=== PATIENT | male | born 1955 | race Caucasian/White ===

== ENCOUNTER 2019-02-12 18:34 | Inpatient (IN) | payer OTHER, MEDICAID ==
[~2019-02-12] VITALS: Ht 157.5 cm; Wt 93.0 kg
[2019-02-12 18:36] VITALS: BP_SYST 96
[2019-02-12] MEDS ORDERED: DOCU-144 PO (19:00)
[2019-02-12] MEDS ORDERED: OMEP20CA10 PO (19:00)
[2019-02-12] MEDS ORDERED: FERR-69 PO (19:00)
[2019-02-12] MEDS ORDERED: HYT1 PO (19:00)
[2019-02-12] MEDS ORDERED: CALC500T3 PO (19:00)
[2019-02-12] MEDS ORDERED: NEU100 PO (19:00)
[2019-02-12] MEDS ORDERED: ASPI-1155 PO (19:00)
[2019-02-12] MEDS ORDERED: NACL 0.9% 1,000 ML IV ONE (20:00)
[2019-02-12 20:11] LABS: BASOPHILS % (AUTO) 0.7 % (0.0-2.0); EOSINOPHILS # (AUTO) 0.3 K/uL (0.0-0.4); EOSINOPHILS % (AUTO) 4.7 % (0.0-4.0); HEMATOCRIT 27.4 % (36-54); HEMOGLOBIN 8.7 g/dL (14.0-18.0); LYMPHOCYTES # (AUTO) 1.1 K/uL (1.0-5.5); LYMPHOCYTES % (AUTO) 17.2 % (20.5-51.5); MEAN CORPUSCULAR HEMOGLOBIN 29 pg (27-31); MEAN CORPUSCULAR HGB CONC 32 % (32-36); MEAN CORPUSCULAR VOLUME 92 fL (79.0-98.0); MONOCYTES # (AUTO) 0.4 K/uL (0.0-1.0); MONOCYTES % (AUTO) 6.4 % (1.7-9.3); NEUTROPHILS # (AUTO) 4.6 K/uL (1.8-7.7); PLATELET COUNT (AUTO) 153 K/uL (130-430); RED BLOOD CELL COUNT(AUTO) 2.99 MIL/uL (4.2-6.2); RED CELL DISTRIBUTION WIDTH 18.3 % (9.0-15.0); WHITE BLOOD COUNT (AUTO) 6.4 K/uL (4.8-10.8)
[2019-02-12 20:30] LABS: PROTHROMBIN TIME 10.1 SECS (9.5-12.5)
[2019-02-12 20:32] LABS: ALBUMIN 1.8 g/dL (3.4-4.8); CALCIUM 8.9 mg/dL (8.4-11.0); CREATININE 6.07 mg/dL (0.55-1.30); TOTAL BILIRUBIN 0.2 mg/dL (0.0-1.0)
[2019-02-12 20:48] LABS: BILIRUBIN,URINE NEGATIVE (NEGATIVE); BLOOD, URINE 2+ (NEGATIVE); CLARITY/URINE HAZY (CLEAR); COLOR,URINE YELLOW (YELLOW); GLUCOSE,URINE NEGATIVE (NEGATIVE); KETONES,URINE NEGATIVE (NEGATIVE); LEUKOCYTE ESTERASE ,URINE 3+ (NEGATIVE); NITRITE, URINE POSITIVE (NEGATIVE); PH,URINE 7.5 (5.0-8.0); PROTEIN URINE 1+ (NEGATIVE)
[2019-02-12 20:49] LABS: UROBILINOGEN,URINE 0.2 (0.2-1.0)
[2019-02-12 20:50] LABS: BACTERIA,URINE MODERATE /HPF (None Seen); RBC,URINE 20-50 /HPF (0-3); WBC,URINE 50-80 /HPF (0-3)
[2019-02-12] MEDS ORDERED: cefTRIAXone 1 GM IVPB PREMIX 50 ML IV ONE (21:00)
[2019-02-12] MEDS ORDERED: NACL 0.9% 1,000 ML IV SCH (22:00)
[2019-02-12] MEDS ORDERED: LORazepam 2 MG/ML VIAL IVP PRN (23:45)
[2019-02-12] MEDS ORDERED: ACETAMINOPHEN 325 MG TABLET PO PRN (23:45)
[2019-02-12] MEDS ORDERED: HYDROcodone/ACETAMIN 10-325 MG TAB PO PRN (23:45)
[2019-02-12] MEDS ORDERED: LR 1,000 ML IV SCH (23:45)
[2019-02-12] MEDS ORDERED: ONDANSETRON HCL 4 MG/2 ML VIAL IVP PRN (23:45)
[2019-02-12] MEDS ORDERED: HYDROcodone/ACETAMIN 5-325 MG TAB (NORCO/ VICODIN) PO PRN (23:45)
[2019-02-12 23:50] VITALS: BP_SYST 102
[2019-02-13] MEDS: D5/0.45 NS 1,000 ML IV SCH ×3 (01:38→21:09)
[2019-02-13 02:36] VITALS: BP_SYST 150
[2019-02-13 05:26] LABS: BASOPHILS # (AUTO) 0.1 K/uL (0.0-0.2); BASOPHILS % (AUTO) 0.8 % (0.0-2.0); EOSINOPHILS # (AUTO) 0.3 K/uL (0.0-0.4); EOSINOPHILS % (AUTO) 4.7 % (0.0-4.0); HEMATOCRIT 25.8 % (36-54); LYMPHOCYTES # (AUTO) 1.8 K/uL (1.0-5.5); LYMPHOCYTES % (AUTO) 27.7 % (20.5-51.5); MEAN CORPUSCULAR HEMOGLOBIN 29 pg (27-31); MEAN CORPUSCULAR HGB CONC 31 % (32-36); MEAN CORPUSCULAR VOLUME 93 fL (79.0-98.0); MONOCYTES # (AUTO) 0.5 K/uL (0.0-1.0); MONOCYTES % (AUTO) 7.3 % (1.7-9.3); NEUTROPHILS % (AUTO) 59.5 % (40.0-70.0); PLATELET COUNT (AUTO) 150 K/uL (130-430); RED BLOOD CELL COUNT(AUTO) 2.78 MIL/uL (4.2-6.2); RED CELL DISTRIBUTION WIDTH 18.7 % (9.0-15.0); WHITE BLOOD COUNT (AUTO) 6.7 K/uL (4.8-10.8)
[2019-02-13] MEDS: NORMAL SALINE 5 ML DISP.SYRIN IVF SCH ×3 (05:32→21:11)
[2019-02-13 05:41] LABS: C-REACTIVE PROTEIN QUANT 9.5 mg/dL (0-0.5); CALCIUM 8.4 mg/dL (8.4-11.0); CREATININE 5.69 mg/dL (0.55-1.30); PHOSPHORUS 8.3 mg/dL (2.7-4.5)
[2019-02-13] MEDS ORDERED: NORMAL SALINE 5 ML DISP.SYRIN IVF SCH (06:00)
[2019-02-13 07:52] LABS: ERYTHROCYTE SEDIMENTATION RATE 79 MM/HR (0-15)
[2019-02-13 09:00] VITALS: BP_SYST 82
[2019-02-13] MEDS ORDERED: CALCIUM CARBONATE 500 MG PO SCH (09:00)
[2019-02-13] MEDS ORDERED: NON-FORMULARY MEDICATION (Ferrous Sulfate 325 MG) PO SCH (09:00)
[2019-02-13] MEDS: TERAZOSIN HCL 1 MG CAPSULE (HYTRIN) PO SCH ×2 (09:00→21:00)
[2019-02-13] MEDS ORDERED: NACL 0.9% 1,000 ML IV ONE (09:15)
[2019-02-13] MEDS ORDERED: NACL 0.9% 1,000 ML IV SCH (10:00)
[2019-02-13] MEDS: GABAPENTIN 100 MG CAPSULE PO SCH (10:01)
[2019-02-13] MEDS: FERROUS SULFATE 325 MG TABLET.DR PO SCH (10:01)
[2019-02-13] MEDS: DOCUSATE SODIUM 100 MG CAPSULE PO SCH ×2 (10:01→21:10)
[2019-02-13] MEDS: OMEPRAZOLE 20 MG CAPSULE.DR (PriLOSEC) PO SCH (10:01)
[2019-02-13] MEDS: CALCIUM CARBONATE 500 MG/ TAB.CHEW PO SCH ×2 (10:01→21:10)
[2019-02-13 10:02] VITALS: BP_SYST 98
[2019-02-13] MEDS: ASPIRIN 81 MG TAB.CHEW PO SCH (10:02)
[2019-02-13 12:37] VITALS: BP_SYST 100
[2019-02-13 16:00] VITALS: BP_SYST 90
[2019-02-13 19:35] VITALS: BP_SYST 90
[2019-02-13] MEDS ORDERED: cefTRIAXone 1 GM IVPB PREMIX 50 ML IV SCH (21:00)
[2019-02-14] VITALS (9 sets, daily range): BP systolic 85–101
[2019-02-14] MEDS ORDERED: PIPERACILLIN/TAZOBACTAM 2.25 GM VIAL IV ONE (03:38)
[2019-02-14] MEDS: PIPERACILLIN/TAZO 2.25G/DEX-IS 50 ML IV SCH ×3 (05:43→21:02)
[2019-02-14] MEDS: NORMAL SALINE 5 ML DISP.SYRIN IVF SCH ×3 (05:44→21:03)
[2019-02-14] MEDS: CALCIUM CARBONATE 500 MG/ TAB.CHEW PO SCH ×2 (08:27→20:58)
[2019-02-14] MEDS: ASPIRIN 81 MG TAB.CHEW PO SCH (08:28)
[2019-02-14] MEDS: FERROUS SULFATE 325 MG TABLET.DR PO SCH (08:28)
[2019-02-14] MEDS: GABAPENTIN 100 MG CAPSULE PO SCH (08:28)
[2019-02-14] MEDS: OMEPRAZOLE 20 MG CAPSULE.DR (PriLOSEC) PO SCH (08:28)
[2019-02-14] MEDS: DOCUSATE SODIUM 100 MG CAPSULE PO SCH ×2 (08:28→20:58)
[2019-02-14] MEDS: TERAZOSIN HCL 1 MG CAPSULE (HYTRIN) PO SCH ×2 (08:29→20:58)
[2019-02-14] MEDS ORDERED: 0.45% NS 500 ML IV ONE (08:45)
[2019-02-14] MEDS ORDERED: NACL 0.9% 1,000 ML IV ONE (09:15)
[2019-02-14] MEDS: D5/0.45 NS 1,000 ML IV SCH ×2 (11:20→20:57)
[2019-02-14 12:03] LABS: BASOPHILS % (AUTO) 0.7 % (0.0-2.0); EOSINOPHILS # (AUTO) 0.2 K/uL (0.0-0.4); HEMATOCRIT 26.2 % (36-54); HEMOGLOBIN 8.1 g/dL (14.0-18.0); LYMPHOCYTES # (AUTO) 0.9 K/uL (1.0-5.5); MEAN CORPUSCULAR HEMOGLOBIN 29 pg (27-31); MEAN CORPUSCULAR HGB CONC 31 % (32-36); MEAN CORPUSCULAR VOLUME 93 fL (79.0-98.0); MONOCYTES # (AUTO) 0.3 K/uL (0.0-1.0); MONOCYTES % (AUTO) 5.6 % (1.7-9.3); NEUTROPHILS # (AUTO) 3.4 K/uL (1.8-7.7); NEUTROPHILS % (AUTO) 70.7 % (40.0-70.0); PLATELET COUNT (AUTO) 160 K/uL (130-430); RED BLOOD CELL COUNT(AUTO) 2.82 MIL/uL (4.2-6.2); RED CELL DISTRIBUTION WIDTH 18.9 % (9.0-15.0); WHITE BLOOD COUNT (AUTO) 4.8 K/uL (4.8-10.8)
[2019-02-14 12:07] LABS: ALBUMIN 1.6 g/dL (3.4-4.8); C-REACTIVE PROTEIN QUANT 7.5 mg/dL (0-0.5); CREATININE 4.96 mg/dL (0.55-1.30); PHOSPHORUS 7.8 mg/dL (2.7-4.5); POTASSIUM 3.9 mmol/L (3.5-5.1); TOTAL BILIRUBIN 0.2 mg/dL (0.0-1.0)
[2019-02-14 13:19] LABS: ERYTHROCYTE SEDIMENTATION RATE 71 MM/HR (0-15)
[2019-02-15] VITALS (7 sets, daily range): BP systolic 82–109
[2019-02-15] MEDS: D5/0.45 NS 1,000 ML IV SCH ×3 (05:22→23:46)
[2019-02-15] MEDS: PIPERACILLIN/TAZO 2.25G/DEX-IS 50 ML IV SCH ×2 (05:23→14:24)
[2019-02-15] MEDS: NORMAL SALINE 5 ML DISP.SYRIN IVF SCH ×3 (05:23→21:35)
[2019-02-15 07:01] LABS: BASOPHILS % (AUTO) 0.6 % (0.0-2.0); EOSINOPHILS # (AUTO) 0.3 K/uL (0.0-0.4); EOSINOPHILS % (AUTO) 4.2 % (0.0-4.0); HEMATOCRIT 24.6 % (36-54); HEMOGLOBIN 7.7 g/dL (14.0-18.0); LYMPHOCYTES # (AUTO) 1.4 K/uL (1.0-5.5); MEAN CORPUSCULAR HEMOGLOBIN 29 pg (27-31); MEAN CORPUSCULAR HGB CONC 31 % (32-36); MEAN CORPUSCULAR VOLUME 92 fL (79.0-98.0); MONOCYTES # (AUTO) 0.7 K/uL (0.0-1.0); MONOCYTES % (AUTO) 12.4 % (1.7-9.3); NEUTROPHILS # (AUTO) 3.5 K/uL (1.8-7.7); NEUTROPHILS % (AUTO) 58.8 % (40.0-70.0); PLATELET COUNT (AUTO) 148 K/uL (130-430); RED BLOOD CELL COUNT(AUTO) 2.66 MIL/uL (4.2-6.2); RED CELL DISTRIBUTION WIDTH 18.5 % (9.0-15.0); WHITE BLOOD COUNT (AUTO) 5.9 K/uL (4.8-10.8)
[2019-02-15 07:07] LABS: C-REACTIVE PROTEIN QUANT 6.4 mg/dL (0-0.5); CREATININE 4.56 mg/dL (0.55-1.30); PHOSPHORUS 6.8 mg/dL (2.7-4.5); POTASSIUM 3.5 mmol/L (3.5-5.1)
[2019-02-15 08:03] LABS: ERYTHROCYTE SEDIMENTATION RATE 67 MM/HR (0-15)
[2019-02-15] MEDS: TERAZOSIN HCL 1 MG CAPSULE (HYTRIN) PO SCH ×2 (09:00→21:00)
[2019-02-15] MEDS: GABAPENTIN 100 MG CAPSULE PO SCH (09:03)
[2019-02-15] MEDS: DOCUSATE SODIUM 100 MG CAPSULE PO SCH ×2 (09:04→21:25)
[2019-02-15] MEDS: ASPIRIN 81 MG TAB.CHEW PO SCH (09:04)
[2019-02-15] MEDS: OMEPRAZOLE 20 MG CAPSULE.DR (PriLOSEC) PO SCH (09:04)
[2019-02-15] MEDS: CALCIUM CARBONATE 500 MG/ TAB.CHEW PO SCH ×2 (09:04→21:26)
[2019-02-15] MEDS: FERROUS SULFATE 325 MG TABLET.DR PO SCH (09:04)
[2019-02-15] MEDS ORDERED: MEROPENEM 500 MG VIAL IV ONE (21:58)
[2019-02-15] MEDS: MEROPENEM 500 MG in NS 50 ML IV SCH (22:08)
[2019-02-16 00:40] VITALS: BP_SYST 90
[2019-02-16] MEDS: NORMAL SALINE 5 ML DISP.SYRIN IVF SCH ×3 (05:21→20:41)
[2019-02-16 07:02] LABS: BASOPHILS % (AUTO) 0.7 % (0.0-2.0); EOSINOPHILS # (AUTO) 0.3 K/uL (0.0-0.4); EOSINOPHILS % (AUTO) 4.7 % (0.0-4.0); HEMATOCRIT 25.2 % (36-54); HEMOGLOBIN 8.2 g/dL (14.0-18.0); LYMPHOCYTES # (AUTO) 1.6 K/uL (1.0-5.5); LYMPHOCYTES % (AUTO) 29.6 % (20.5-51.5); MEAN CORPUSCULAR HEMOGLOBIN 30 pg (27-31); MEAN CORPUSCULAR HGB CONC 33 % (32-36); MEAN CORPUSCULAR VOLUME 91 fL (79.0-98.0); MONOCYTES # (AUTO) 0.6 K/uL (0.0-1.0); MONOCYTES % (AUTO) 10.8 % (1.7-9.3); NEUTROPHILS # (AUTO) 2.9 K/uL (1.8-7.7); NEUTROPHILS % (AUTO) 54.2 % (40.0-70.0); PLATELET COUNT (AUTO) 145 K/uL (130-430); RED BLOOD CELL COUNT(AUTO) 2.75 MIL/uL (4.2-6.2); RED CELL DISTRIBUTION WIDTH 18.5 % (9.0-15.0); WHITE BLOOD COUNT (AUTO) 5.4 K/uL (4.8-10.8)
[2019-02-16 07:12] LABS: C-REACTIVE PROTEIN QUANT 5.8 mg/dL (0-0.5); CREATININE 4.36 mg/dL (0.55-1.30); PHOSPHORUS 7.7 mg/dL (2.7-4.5); POTASSIUM 3.3 mmol/L (3.5-5.1)
[2019-02-16 08:13] LABS: ERYTHROCYTE SEDIMENTATION RATE 62 MM/HR (0-15)
[2019-02-16] MEDS: TERAZOSIN HCL 1 MG CAPSULE (HYTRIN) PO SCH ×2 (08:26→20:41)
[2019-02-16] MEDS: FERROUS SULFATE 325 MG TABLET.DR PO SCH (08:31)
[2019-02-16] MEDS: GABAPENTIN 100 MG CAPSULE PO SCH (08:32)
[2019-02-16] MEDS: CALCIUM CARBONATE 500 MG/ TAB.CHEW PO SCH ×2 (08:32→20:27)
[2019-02-16] MEDS: DOCUSATE SODIUM 100 MG CAPSULE PO SCH (08:32)
[2019-02-16] MEDS: OMEPRAZOLE 20 MG CAPSULE.DR (PriLOSEC) PO SCH (08:32)
[2019-02-16] MEDS: ASPIRIN 81 MG TAB.CHEW PO SCH (08:32)
[2019-02-16] MEDS: MEROPENEM 500 MG in NS 50 ML IV SCH ×2 (08:33→20:27)
[2019-02-16] MEDS: DOCUSATE SODIUM 100 MG/10 ML UDC GT SCH ×3 (09:00→20:27)
[2019-02-16 09:05] VITALS: BP_SYST 82
[2019-02-16] MEDS: D5/0.45 NS 1,000 ML IV SCH ×2 (09:25→20:26)
[2019-02-16] MEDS ORDERED: POTASSIUM CHLORIDE 20 MEQ TAB.PRT.SR PO ONE (10:00)
[2019-02-16 11:25] VITALS: BP_SYST 92
[2019-02-16 15:20] VITALS: BP_SYST 123
[2019-02-16 20:00] VITALS: BP_SYST 120
[2019-02-17 01:01] VITALS: BP_SYST 86
[2019-02-17 04:00] VITALS: BP_SYST 98
[2019-02-17] MEDS: NORMAL SALINE 5 ML DISP.SYRIN IVF SCH ×3 (04:28→21:26)
[2019-02-17] MEDS: D5/0.45 NS 1,000 ML IV SCH ×2 (04:28→14:31)
[2019-02-17 08:08] VITALS: BP_SYST 96
[2019-02-17 08:37] LABS: BASOPHILS % (AUTO) 0.5 % (0.0-2.0); EOSINOPHILS # (AUTO) 0.3 K/uL (0.0-0.4); EOSINOPHILS % (AUTO) 5.6 % (0.0-4.0); HEMATOCRIT 27.1 % (36-54); HEMOGLOBIN 8.4 g/dL (14.0-18.0); LYMPHOCYTES # (AUTO) 0.9 K/uL (1.0-5.5); LYMPHOCYTES % (AUTO) 18.7 % (20.5-51.5); MEAN CORPUSCULAR HEMOGLOBIN 28 pg (27-31); MEAN CORPUSCULAR HGB CONC 31 % (32-36); MEAN CORPUSCULAR VOLUME 92 fL (79.0-98.0); MONOCYTES # (AUTO) 0.4 K/uL (0.0-1.0); MONOCYTES % (AUTO) 7.7 % (1.7-9.3); NEUTROPHILS # (AUTO) 3.4 K/uL (1.8-7.7); NEUTROPHILS % (AUTO) 67.5 % (40.0-70.0); PLATELET COUNT (AUTO) 172 K/uL (130-430); RED BLOOD CELL COUNT(AUTO) 2.96 MIL/uL (4.2-6.2); RED CELL DISTRIBUTION WIDTH 18.3 % (9.0-15.0)
[2019-02-17 08:52] LABS: ALBUMIN 1.7 g/dL (3.4-4.8); C-REACTIVE PROTEIN QUANT 7.9 mg/dL (0-0.5); CALCIUM 8.1 mg/dL (8.4-11.0); CREATININE 4.73 mg/dL (0.55-1.30); PHOSPHORUS 8.1 mg/dL (2.7-4.5); POTASSIUM 3.7 mmol/L (3.5-5.1); TOTAL BILIRUBIN 0.1 mg/dL (0.0-1.0)
[2019-02-17] MEDS ORDERED: SULFAMETHOXAZOLE/TRIMETHOPR DS 1 TABLET PO SCH (09:00)
[2019-02-17] MEDS: TERAZOSIN HCL 1 MG CAPSULE (HYTRIN) PO SCH ×2 (09:00→21:22)
[2019-02-17] MEDS: OMEPRAZOLE 20 MG CAPSULE.DR (PriLOSEC) PO SCH (09:20)
[2019-02-17] MEDS: DOCUSATE SODIUM 100 MG/10 ML UDC GT SCH ×2 (09:20→21:20)
[2019-02-17] MEDS: CALCIUM CARBONATE 500 MG/ TAB.CHEW PO SCH ×2 (09:20→21:20)
[2019-02-17] MEDS: FERROUS SULFATE 325 MG TABLET.DR PO SCH (09:21)
[2019-02-17] MEDS: GABAPENTIN 100 MG CAPSULE PO SCH (09:21)
[2019-02-17] MEDS: ASPIRIN 81 MG TAB.CHEW PO SCH (09:21)
[2019-02-17 09:29] LABS: ERYTHROCYTE SEDIMENTATION RATE 75 MM/HR (0-15)
[2019-02-17 12:43] VITALS: BP_SYST 105; BP_SYST 147
[2019-02-17 16:34] VITALS: BP_SYST 102
[2019-02-17 20:20] VITALS: BP_SYST 97
[2019-02-18] MEDS: D5/0.45 NS 1,000 ML IV SCH ×3 (01:08→20:12)
[2019-02-18 03:05] VITALS: BP_SYST 100
[2019-02-18 06:08] LABS: EOSINOPHILS # (AUTO) 0.3 K/uL (0.0-0.4); HEMOGLOBIN 7.1 g/dL (14.0-18.0); MONOCYTES # (AUTO) 0.5 K/uL (0.0-1.0); NEUTROPHILS # (AUTO) 2.5 K/uL (1.8-7.7); NEUTROPHILS % (AUTO) 57.9 % (40.0-70.0)
[2019-02-18] MEDS: NORMAL SALINE 5 ML DISP.SYRIN IVF SCH ×2 (06:09→14:00)
[2019-02-18] MEDS ORDERED: HEPARIN SODIUM,PORCINE 5000 UNITS/ML VIAL IV ONE (06:30)
[2019-02-18 06:54] LABS: BASOPHILS % (AUTO) 0.6 % (0.0-2.0); EOSINOPHILS % (AUTO) 6.5 % (0.0-4.0); HEMATOCRIT 22.7 % (36-54); LYMPHOCYTES # (AUTO) 1.1 K/uL (1.0-5.5); LYMPHOCYTES % (AUTO) 24.4 % (20.5-51.5); MEAN CORPUSCULAR HEMOGLOBIN 29 pg (27-31); MEAN CORPUSCULAR HGB CONC 31 % (32-36); MEAN CORPUSCULAR VOLUME 91 fL (79.0-98.0); MONOCYTES % (AUTO) 10.6 % (1.7-9.3); PLATELET COUNT (AUTO) 147 K/uL (130-430); RED BLOOD CELL COUNT(AUTO) 2.49 MIL/uL (4.2-6.2); RED CELL DISTRIBUTION WIDTH 17.9 % (9.0-15.0); WHITE BLOOD COUNT (AUTO) 4.4 K/uL (4.8-10.8)
[2019-02-18 07:03] LABS: ALBUMIN 1.5 g/dL (3.4-4.8); C-REACTIVE PROTEIN QUANT 9.5 mg/dL (0-0.5); CALCIUM 8.3 mg/dL (8.4-11.0); CREATININE 4.43 mg/dL (0.55-1.30); PHOSPHORUS 8.5 mg/dL (2.7-4.5); POTASSIUM 3.3 mmol/L (3.5-5.1); TOTAL BILIRUBIN 0.1 mg/dL (0.0-1.0)
[2019-02-18 08:00] VITALS: BP_SYST 90
[2019-02-18 08:12] LABS: ERYTHROCYTE SEDIMENTATION RATE 69 MM/HR (0-15)
[2019-02-18] MEDS: TERAZOSIN HCL 1 MG CAPSULE (HYTRIN) PO SCH ×2 (09:00→20:12)
[2019-02-18] MEDS: CALCIUM CARBONATE 500 MG/ TAB.CHEW PO SCH ×2 (10:36→20:12)
[2019-02-18] MEDS: OMEPRAZOLE 20 MG CAPSULE.DR (PriLOSEC) PO SCH (10:37)
[2019-02-18] MEDS: ASPIRIN 81 MG TAB.CHEW PO SCH (10:37)
[2019-02-18] MEDS: FERROUS SULFATE 325 MG TABLET.DR PO SCH (10:37)
[2019-02-18] MEDS: GABAPENTIN 100 MG CAPSULE PO SCH (10:37)
[2019-02-18] MEDS: DOCUSATE SODIUM 100 MG/10 ML UDC GT SCH ×2 (10:41→20:11)
[2019-02-18 11:25] VITALS: BP_SYST 91
[2019-02-18] MEDS ORDERED: HEPARIN SODIUM,PORCINE 5000 UNITS/ML VIAL SUBCUT ONE (13:45)
[2019-02-18 15:35] VITALS: BP_SYST 106
[2019-02-18 20:48] VITALS: BP_SYST 93
== END 2019-02-18 22:00 | DRG 871 ==
LOC: SED 18:34 → STU 22:00 → SMU 02-15 13:18
PROVIDERS: ADMIT Preventive Medicine Preventive Medicine/Occupational Environmental Medicine; ATTEND Preventive Medicine Preventive Medicine/Occupational Environmental Medicine
PROC: 30233N1 Transfusion of Nonautologous Red Blood Cells into Peripheral Vein, Percutaneous Approach (ICD-10-PCS; principal; 2019-02-18)
PROC: 02HV33Z Insertion of Infusion Device into Superior Vena Cava, Percutaneous Approach (ICD-10-PCS; 2019-02-18)
PROC: B548ZZA Ultrasonography of Superior Vena Cava, Guidance (ICD-10-PCS; 2019-02-18)
PROC: 5A1D70Z Performance of Urinary Filtration, Intermittent, Less than 6 Hours Per Day (ICD-10-PCS; 2019-02-18)
DX: A40.1 Sepsis due to streptococcus, group B (principal); G82.50 Quadriplegia, unspecified; J18.1 Lobar pneumonia, unspecified organism; N17.0 Acute kidney failure with tubular necrosis; N39.0 Urinary tract infection, site not specified; J44.0 Chronic obstructive pulmonary disease with (acute) lower respiratory infection; R47.01 Aphasia; E87.1 Hypo-osmolality and hyponatremia; E78.5 Hyperlipidemia, unspecified; F20.9 Schizophrenia, unspecified; I48.91 Unspecified atrial fibrillation; D64.9 Anemia, unspecified; B96.4 Proteus (mirabilis) (morganii) as the cause of diseases classified elsewhere; B96.89 Other specified bacterial agents as the cause of diseases classified elsewhere; E83.39 Other disorders of phosphorus metabolism; E83.52 Hypercalcemia; E86.0 Dehydration; E87.6 Hypokalemia; E87.70 Fluid overload, unspecified; G40.909 Epilepsy, unspecified, not intractable, without status epilepticus; N18.9 Chronic kidney disease, unspecified; N40.0 Benign prostatic hyperplasia without lower urinary tract symptoms; R13.10 Dysphagia, unspecified; R73.9 Hyperglycemia, unspecified; Z79.899 Other long term (current) drug therapy; I69.365 Other paralytic syndrome following cerebral infarction, bilateral
CPT/HCPCS: 36415; 36600; 71045; 76770; 80048; 80053; 81000-TC; 82803-TC; 83605; 83735-TC; 84100-TC; 84484; 85025; 85610-TC; 85651-TC; 85730-TC; 86140; 86886; 86900; 86901; 86920; 87040-TC; 87081; 87086; 87186-TC; 87340; 90935; 93005; 93306; 96361; 96365; 99285; G0378; J0696; J1644; J2185; J2543; J7030; J7060; J7120; P9021